=== PATIENT | male | born 1955 | race Two or more races ===

== ENCOUNTER 2022-07-13 07:52 | Inpatient (IN) | payer MEDICARE ==
[~2022-07-13] VITALS: Ht 175.3 cm; Wt 69.0 kg
[2022-07-13 08:26] LABS: Basophils # (auto) 0 10 ^3/uL (0-0.2); Basophils % (auto) 0.2 % (0.0-2.0); Eosinophils # (auto) 0 10 ^3/uL (0-0.8); Hematocrit 44.8 % (41.0-53.0); Hemoglobin 15.1 g/dL (13.5-17.5); Lymphocytes # (auto) 0.6 10 ^3/uL (0.4-5.4); Lymphocytes % (auto) 3.8 % (10.0-50.0); Mean Corpuscular Hemoglobin 30.2 pg (28.0-32.0); Mean Corpuscular Hgb Conc. 33.7 g/dL (32.0-36.0); Mean Corpuscular Volume 89.6 fL (80.0-100.0); Monocytes # (auto) 1.1 10 ^3/uL (0-1.3); Neutrophils # (auto) 14.4 10 ^3/uL (1.6-8.6); Red Cell Distribution Width 13.1 % (11.8-14.3); White Blood Cell 16.1 10^3/uL (4.4-10.8)
[2022-07-13 08:34] LABS: INR 1.04 (0.9-1.15); Partial Thromboplastin Time 30.2 sec (24.6-33.4)
[2022-07-13 09:00] LABS: Albumin 3.2 g/dL (3.4-5.0); BUN/Creatinine Ratio 7.5 (10.0-20.0); Calcium 9.1 mg/dL (8.5-10.1)
[2022-07-13 09:03] LABS: Potassium 3.4 mmol/L (3.5-5.1)
[2022-07-13 09:05] LABS: Bilirubin, Total 1.1 mg/dL (0.2-1.0); Total Protein 7.6 g/dL (6.4-8.2)
[2022-07-13] MEDS ORDERED: ITRACONAZOLE 100 MG CAP PO ONE (10:00)
[2022-07-13] MEDS ORDERED: methylPREDNISolone SOD SUCC 125 MG/2 ML VL IV ONE (11:15)
[2022-07-13] MEDS ORDERED: MORPHINE SULFATE INJ 2 MG/ml SYRG IV PRN (11:15)
[2022-07-13] MEDS ORDERED: ONDANSETRON HCL 4 MG/2 ML VIAL IV PRN (11:15)
[2022-07-13] MEDS ORDERED: DOCUSATE SOD 100 MG CAP PO PRN (11:15)
[2022-07-13] MEDS: SODIUM CHLORIDE 0.9% 1,000 ML IV SCH ×2 (12:51→19:35)
[2022-07-13] MEDS ORDERED: ITRACONAZOLE 100 MG CAP PO SCH (14:00)
[2022-07-13] MEDS: methylPREDNISolone SOD SUCC 125 MG/2 ML VL IV SCH (22:55)
[2022-07-14 04:49] VITALS: BP 105/66
[2022-07-14] MEDS: SODIUM CHLORIDE 0.9% 1,000 ML IV SCH ×3 (06:05→22:06)
[2022-07-14] MEDS: methylPREDNISolone SOD SUCC 125 MG/2 ML VL IV SCH ×3 (06:05→22:06)
[2022-07-14 06:37] LABS: Hematocrit 40.5 % (41.0-53.0); Mean Corpuscular Hemoglobin 30.8 pg (28.0-32.0); Mean Corpuscular Hgb Conc. 34.5 g/dL (32.0-36.0); Mean Corpuscular Volume 89.3 fL (80.0-100.0); Red Blood Cells 4.54 10^6/uL (4.5-5.90); Red Cell Distribution Width 12.7 % (11.8-14.3); White Blood Cell 15.7 10^3/uL (4.4-10.8)
[2022-07-14 06:49] LABS: Potassium 3.5 mmol/L (3.5-5.1)
[2022-07-14 06:59] LABS: Albumin 2.4 g/dL (3.4-5.0); BUN/Creatinine Ratio 23.4 (10.0-20.0); Calcium 9.1 mg/dL (8.5-10.1)
[2022-07-14 07:02] LABS: Bilirubin, Total 0.7 mg/dL (0.2-1.0); Total Protein 7.1 g/dL (6.4-8.2)
[2022-07-14 07:25] LABS: Basophils % (manual) 0 (0.0-2.0); Blast Cells 0; Eosinophils % (manual) 0 (0-7); Metamyelocytes % 0; Myelocytes % 0; Promyelocytes % 0; Reactive Lymphocytes 0
[2022-07-14] MEDS: cefTRIAXone 1GM/50ML D5W 50 ML IV SCH (08:48)
[2022-07-14] MEDS: ENOXAPARIN SOD 40 MG/0.4 ML SYRINGE SC SCH (08:49)
[2022-07-14 09:00] VITALS: BP 100/63
[2022-07-14 10:19] LABS: Band Neutrophils % (manual) 6; Lymphocytes % (manual) 5 (10.0-50.0); Monocytes % (manual) 1 (0-12)
[2022-07-14] MEDS: AZITHROMYCIN 500MG/ 250ML 250 ML IV SCH (11:09)
[2022-07-14 12:38] VITALS: BP 100/67
[2022-07-14 17:00] VITALS: BP 120/63
[2022-07-14 22:00] VITALS: BP 103/63
[2022-07-15] MEDS: SODIUM CHLORIDE 0.9% 1,000 ML IV SCH ×3 (04:55→22:52)
[2022-07-15 05:00] VITALS: BP 105/56
[2022-07-15] MEDS: methylPREDNISolone SOD SUCC 125 MG/2 ML VL IV SCH ×3 (06:22→22:52)
[2022-07-15] MEDS: cefTRIAXone 1GM/50ML D5W 50 ML IV SCH (08:11)
[2022-07-15 08:12] VITALS: BP 105/66
[2022-07-15] MEDS: AZITHROMYCIN 500MG/ 250ML 250 ML IV SCH (09:12)
[2022-07-15] MEDS: ENOXAPARIN SOD 40 MG/0.4 ML SYRINGE SC SCH (09:12)
[2022-07-15 11:54] VITALS: BP 101/63
[2022-07-15 16:33] VITALS: BP 111/64
[2022-07-15 22:00] VITALS: BP 112/68
[2022-07-16 05:00] VITALS: BP 116/73
[2022-07-16] MEDS: methylPREDNISolone SOD SUCC 125 MG/2 ML VL IV SCH ×3 (05:41→21:05)
[2022-07-16] MEDS: SODIUM CHLORIDE 0.9% 1,000 ML IV SCH ×3 (05:41→21:05)
[2022-07-16 08:00] VITALS: BP 110/63
[2022-07-16] MEDS: cefTRIAXone 1GM/50ML D5W 50 ML IV SCH (08:19)
[2022-07-16 09:00] VITALS: BP 110/63
[2022-07-16] MEDS: ENOXAPARIN SOD 40 MG/0.4 ML SYRINGE SC SCH (11:49)
[2022-07-16] MEDS: AZITHROMYCIN 500MG/ 250ML 250 ML IV SCH (11:49)
[2022-07-16 13:00] VITALS: BP 102/58
[2022-07-16 18:12] VITALS: BP 124/66
[2022-07-16 22:00] VITALS: BP 119/72
[2022-07-17] MEDS: SODIUM CHLORIDE 0.9% 1,000 ML IV SCH (01:51)
[2022-07-17 05:00] VITALS: BP 125/71
[2022-07-17] MEDS: methylPREDNISolone SOD SUCC 125 MG/2 ML VL IV SCH ×2 (05:05→14:16)
[2022-07-17 09:06] VITALS: BP 113/61
[2022-07-17] MEDS: cefTRIAXone 1GM/50ML D5W 50 ML IV SCH (10:27)
[2022-07-17] MEDS: AZITHROMYCIN 500MG/ 250ML 250 ML IV SCH (10:27)
[2022-07-17] MEDS: ENOXAPARIN SOD 40 MG/0.4 ML SYRINGE SC SCH (10:27)
[2022-07-17] MEDS ORDERED: LEVO750T8 PO (11:08)
[2022-07-17 13:00] VITALS: BP 119/68
== END 2022-07-17 15:14 | disposition home or self-care (01) | DRG 193 ==
LOC: ER 07:52 → OVERFLOW 11:24 → WEST WING 18:32
PROVIDERS: ADMIT Nurse Practitioner Family; ATTEND Internal Medicine Pulmonary Disease
DX: J18.9 Pneumonia, unspecified organism (principal); J96.00 Acute respiratory failure, unspecified whether with hypoxia or hypercapnia; E44.1 Mild protein-calorie malnutrition; J47.0 Bronchiectasis with acute lower respiratory infection; J47.1 Bronchiectasis with (acute) exacerbation; J98.11 Atelectasis; E87.1 Hypo-osmolality and hyponatremia; Z20.822 Contact with and (suspected) exposure to COVID-19; E87.6 Hypokalemia; J84.10 Pulmonary fibrosis, unspecified; Z82.49 Family history of ischemic heart disease and other diseases of the circulatory system; Z68.22 Body mass index [BMI] 22.0-22.9, adult
CPT/HCPCS: 36415; 71045; 71250; 80053; 82785; 84484; 85007; 85025; 85027; 85610; 85730; 86606; 86703; 87070; 87205; 87426; 93005; 96374; G0378; J0696

== ENCOUNTER 2023-04-09 09:13 | Emergency (ER) | payer MEDICARE ==
[~2023-04-09] VITALS: Ht 180.3 cm; Wt 50.2 kg
[~2023-04-09 09:13] MED LIST: LEVO750T8 PO
[2023-04-09 09:35] LABS: Basophils # (auto) 0 10 ^3/uL (0-0.2); Basophils % (auto) 0.3 % (0.0-2.0); Eosinophils # (auto) 0.1 10 ^3/uL (0-0.8); Eosinophils % (auto) 1.4 % (0.0-7.0); Hematocrit 41.2 % (41.0-53.0); Hemoglobin 13.5 g/dL (13.5-17.5); Lymphocytes # (auto) 0.6 10 ^3/uL (0.4-5.4); Lymphocytes % (auto) 6.8 % (10.0-50.0); Mean Corpuscular Hemoglobin 29.7 pg (28.0-32.0); Mean Corpuscular Hgb Conc. 32.8 g/dL (32.0-36.0); Mean Corpuscular Volume 90.6 fL (80.0-100.0); Monocytes # (auto) 0.6 10 ^3/uL (0-1.3); Monocytes % (auto) 7.6 % (0.0-12.0); Neutrophils # (auto) 7.1 10 ^3/uL (1.6-8.6); Neutrophils % (auto) 83.9 % (37.0-80.0); Red Blood Cells 4.54 10^6/uL (4.5-5.90); Red Cell Distribution Width 14.8 % (11.8-14.3); White Blood Cell 8.4 10^3/uL (4.4-10.8)
[2023-04-09] MEDS ORDERED: ASPirin 81 mg TAB PO ONE (09:45)
[2023-04-09 09:57] LABS: Albumin 4.4 g/dL (3.2-4.8); Alkaline Phosphatase 91 U/L (46-116); Anion Gap 8 (5-15); Aspartate Aminotransferase 12 U/L (13-40); BUN/Creatinine Ratio 12.6 (10.0-20.0); Bilirubin, Total 0.5 mg/dL (0.2-1.0); Blood Urea Nitrogen 12 mg/dL (9-23); Calcium 9.7 mg/dL (8.5-10.1); Carbon Dioxide 29 mmol/L (20-30); Chloride 103 mmol/L (98-107); Glucose 111 mg/dL (74-106); Potassium 4.1 mmol/L (3.5-5.1); Sodium 140 mmol/L (136-145); Total Protein 7.5 g/dL (5.7-8.2)
[2023-04-09 10:01] LABS: Alanine Aminotransferase 9 U/L (7-40)
[2023-04-09 13:58] LABS: Urine Bacteria NONE SEEN /hpf (None Seen); Urine Blood Negative /uL (Negative); Urine Clarity Clear (Clear); Urine Color Yellow (Yellow); Urine Mucus FEW (None Seen); Urine Protein, UAD TRACE (Negative); Urine Specific Gravity 1.024 (1.001-1.035); Urine Urobilinogen Normal (Negative); Urine WBC 1 /hpf (0 - 3)
[2023-04-09 14:16] VITALS: BP 125/71; PULSE 83; RESP 18; TEMP 98.5; O2SAT 99
== END 2023-04-09 14:19 | disposition home or self-care (01) ==
LOC: ER 09:13
DX: R07.89 Other chest pain (principal); Z79.2 Long term (current) use of antibiotics
CPT/HCPCS: 36415; 71045; 80053; 81001; 84484; 85025; 93005

== ENCOUNTER 2023-04-23 09:28 | Emergency (ER) | payer MEDICARE ==
[~2023-04-23] VITALS: Ht 180.3 cm; Wt 48.8 kg
[2023-04-23 10:50] LABS: Basophils # (auto) 0 10 ^3/uL (0-0.2); Basophils % (auto) 0.7 % (0.0-2.0); Eosinophils # (auto) 0.1 10 ^3/uL (0-0.8); Eosinophils % (auto) 2.1 % (0.0-7.0); Hematocrit 36.6 % (41.0-53.0); Hemoglobin 12.2 g/dL (13.5-17.5); Lymphocytes # (auto) 0.4 10 ^3/uL (0.4-5.4); Lymphocytes % (auto) 6.6 % (10.0-50.0); Mean Corpuscular Hemoglobin 29.7 pg (28.0-32.0); Mean Corpuscular Hgb Conc. 33.2 g/dL (32.0-36.0); Mean Corpuscular Volume 89.4 fL (80.0-100.0); Monocytes # (auto) 0.5 10 ^3/uL (0-1.3); Monocytes % (auto) 8.6 % (0.0-12.0); Neutrophils # (auto) 4.8 10 ^3/uL (1.6-8.6); Nucleated Red Blood Cells % 0.1 %; Red Cell Distribution Width 14.7 % (11.8-14.3); White Blood Cell 5.9 10^3/uL (4.4-10.8)
[2023-04-23 11:12] LABS: Alanine Aminotransferase 11 U/L (7-40); Alkaline Phosphatase 72 U/L (46-116); Anion Gap 5 (5-15); Aspartate Aminotransferase 14 U/L (13-40); Blood Urea Nitrogen 8 mg/dL (9-23); Calcium 9.2 mg/dL (8.5-10.1); Carbon Dioxide 27 mmol/L (20-30); Chloride 108 mmol/L (98-107); Glucose 113 mg/dL (74-106); Potassium 4.2 mmol/L (3.5-5.1); Sodium 140 mmol/L (136-145)
[2023-04-23 11:13] LABS: Bilirubin, Total 0.3 mg/dL (0.2-1.0); Total Protein 7.1 g/dL (5.7-8.2)
[2023-04-23] MEDS ORDERED: LEVO500T91 PO (13:00)
[2023-04-23 13:09] VITALS: BP 100/73; PULSE 97; RESP 18; O2SAT 99
== END 2023-04-23 13:20 | disposition home or self-care (01) ==
LOC: ER 09:28
DX: J40 Bronchitis, not specified as acute or chronic (principal)
CPT/HCPCS: 36415; 71045; 80053; 84484; 85025

== ENCOUNTER 2023-05-18 17:28 | Inpatient (IN) | payer MEDICARE ==
[~2023-05-18] VITALS: Ht 180.3 cm; Wt 89.9 kg
[~2023-05-18 17:28] MED LIST changes: +LEVO500T91 PO
[2023-05-18 18:05] VITALS: PULSE 90; RESP 21; O2SAT 98
[2023-05-18 19:40] VITALS: PULSE 92; RESP 20; O2SAT 96
[2023-05-18] MEDS: IPRATROPIUM BROM 0.5 MG/2.5ML INH SOL HHN ONE (20:34)
[2023-05-18] MEDS: ALBUTEROL SULF 2.5 MG/0.5ML(0.5%) NEB SOLN HHN ONE (20:34)
[2023-05-18] MEDS: DexAMETHasone SOD PHOS 10MG/1ML VIAL INJ IV ONE (20:53)
[2023-05-18] MEDS: SODIUM CHLORIDE 0.9% 1,000 ML IV ONE (20:54)
[2023-05-18] MEDS: cefTRIAXone 1GM/50ML D5W 50 ML IV ONE (21:23)
[2023-05-18 21:24] LABS: Basophils # (auto) 0 10 ^3/uL (0-0.2); Basophils % (auto) 0.4 % (0.0-2.0); Eosinophils # (auto) 0.2 10 ^3/uL (0-0.8); Eosinophils % (auto) 2.5 % (0.0-7.0); Hematocrit 35.6 % (41.0-53.0); Hemoglobin 11.7 g/dL (13.5-17.5); Lymphocytes # (auto) 1.1 10 ^3/uL (0.4-5.4); Lymphocytes % (auto) 16.3 % (10.0-50.0); Mean Corpuscular Hemoglobin 28.8 pg (28.0-32.0); Mean Corpuscular Volume 87.4 fL (80.0-100.0); Monocytes # (auto) 0.6 10 ^3/uL (0-1.3); Monocytes % (auto) 9.4 % (0.0-12.0); Neutrophils # (auto) 4.8 10 ^3/uL (1.6-8.6); Neutrophils % (auto) 71.4 % (37.0-80.0); Nucleated Red Blood Cells % 0.1 %; Red Blood Cells 4.07 10^6/uL (4.5-5.90); Red Cell Distribution Width 13.7 % (11.8-14.3); White Blood Cell 6.7 10^3/uL (4.4-10.8)
[2023-05-18 21:39] LABS: Alkaline Phosphatase 67 U/L (46-116); Anion Gap 9 (5-15); Aspartate Aminotransferase 9 U/L (13-40); BUN/Creatinine Ratio 12.8 (10.0-20.0); Blood Urea Nitrogen 11 mg/dL (9-23); Calcium 8.8 mg/dL (8.7-10.4); Carbon Dioxide 24 mmol/L (20-30); Chloride 107 mmol/L (98-107); Glucose 97 mg/dL (74-106); Magnesium 2.1 mg/dL (1.6-2.6); Potassium 3.7 mmol/L (3.5-5.1); Sodium 140 mmol/L (136-145)
[2023-05-18 21:40] LABS: Alanine Aminotransferase < 9 U/L (7-40); Bilirubin, Total 0.5 mg/dL (0.2-1.0); INR 1.01 (0.9-1.15); Partial Thromboplastin Time 32.5 SEC (24.5-34.5); Prothrombin Time 10.6 sec (9.3-11.8); Total Protein 7.2 g/dL (5.7-8.2)
[2023-05-18] MEDS: AZITHROMYCIN 500MG/ 250ML 250 ML IV ONE (21:54)
[2023-05-18] MEDS ORDERED: NITROGLYCERIN 0.4 MG SL TAB SL PRN (22:00)
[2023-05-18] MEDS ORDERED: ONDANSETRON HCL 4 MG/2 ML VIAL IV PRN (22:00)
[2023-05-18] MEDS ORDERED: HYDROcodone-ACET 5/325MG TAB PO PRN (22:00)
[2023-05-18] MEDS ORDERED: ACETAMINOPHEN 325 MG TAB PO PRN (22:00)
[2023-05-18] MEDS ORDERED: MORPHINE SULFATE INJ 2 MG/ml SYRG IV PRN ×2 (22:00)
[2023-05-18] MEDS ORDERED: TEMAZEPAM 15 MG CAP PO PRN (22:00)
[2023-05-18] MEDS: ASCORBIC ACID 500 MG TAB PO SCH (22:18)
[2023-05-19] VITALS (9 sets, daily range): BP systolic 96–121; BP diastolic 54–74; PULSE 70–98; RESP 16–22; TEMP 97.7–98.4; O2SAT 95–99
[2023-05-19] MEDS: PIPERACILLIN-TAZOB 3.375GM 100 ML IV SCH (00:08)
[2023-05-19] MEDS ORDERED: CARB25TA79 PO (00:16)
[2023-05-19] MEDS ORDERED: MEGE20TA4 PO (00:16)
[2023-05-19 00:19] LABS: COVID19 ANTIGEN SOFIA FIA NEGATIVE (NEGATIVE)
[2023-05-19 01:49] LABS: Urine WBC None Seen /hpf (0 - 3)
[2023-05-19 01:54] LABS: Urine Bacteria NONE SEEN /hpf (None Seen); Urine Blood Negative /uL (Negative); Urine Clarity Clear (Clear); Urine Color Straw (Yellow); Urine Protein, UAD Negative (Negative); Urine Specific Gravity 1.014 (1.001-1.035); Urine Urobilinogen Normal (Negative); Urine pH 5.5 (5.0-8.0)
[2023-05-19 05:27] LABS: Basophils # (auto) 0 10 ^3/uL (0-0.2); Basophils % (auto) 0.1 % (0.0-2.0); Eosinophils # (auto) 0 10 ^3/uL (0-0.8); Eosinophils % (auto) 0.1 % (0.0-7.0); Hematocrit 31.9 % (41.0-53.0); Hemoglobin 10.6 g/dL (13.5-17.5); Lymphocytes # (auto) 0.2 10 ^3/uL (0.4-5.4); Mean Corpuscular Hemoglobin 28.8 pg (28.0-32.0); Mean Corpuscular Hgb Conc. 33.1 g/dL (32.0-36.0); Mean Corpuscular Volume 86.9 fL (80.0-100.0); Monocytes # (auto) 0.1 10 ^3/uL (0-1.3); Monocytes % (auto) 1.2 % (0.0-12.0); Neutrophils # (auto) 4.2 10 ^3/uL (1.6-8.6); Neutrophils % (auto) 93.6 % (37.0-80.0); Red Blood Cells 3.67 10^6/uL (4.5-5.90); Red Cell Distribution Width 13.5 % (11.8-14.3); White Blood Cell 4.4 10^3/uL (4.4-10.8)
[2023-05-19 05:38] LABS: Albumin 3.5 g/dL (3.2-4.8); Alkaline Phosphatase 58 U/L (46-116); Anion Gap 7 (5-15); Aspartate Aminotransferase < 8 U/L (13-40); BUN/Creatinine Ratio 10.7 (10.0-20.0); Blood Urea Nitrogen 8 mg/dL (9-23); Calcium 8.7 mg/dL (8.7-10.4); Carbon Dioxide 23 mmol/L (20-30); Chloride 110 mmol/L (98-107); Glucose 141 mg/dL (74-106); Potassium 4.1 mmol/L (3.5-5.1); Sodium 140 mmol/L (136-145)
[2023-05-19 05:39] LABS: Bilirubin, Total 0.5 mg/dL (0.2-1.0); Total Protein 6.4 g/dL (5.7-8.2)
[2023-05-19 06:22] LABS: Alanine Aminotransferase < 9 U/L (7-40)
[2023-05-19] MEDS ORDERED: ALBUTEROL SULF 2.5 MG/0.5ML(0.5%) NEB SOLN NEB PRN (11:15)
[2023-05-19] MEDS: ENOXAPARIN SOD 30 MG/0.3 ML SYRINGE SC SCH (11:15)
[2023-05-19] MEDS: MULTIPLE VITAMIN TAB PO SCH (11:39)
[2023-05-19] MEDS: ZINC SULFATE 220mg CAP or TAB PO SCH (11:39)
[2023-05-19] MEDS: CARBIDOPA W LEVODOPA 25/100mg TABLET PO SCH (12:25)
[2023-05-19] MEDS: MEGESTROL ACETATE 20 MG TAB PO SCH (13:08)
[2023-05-20] VITALS (7 sets, daily range): BP systolic 92–108; BP diastolic 53–66; PULSE 74–87; RESP 16–17; TEMP 97.9–98.9; O2SAT 97–99
[2023-05-20] MEDS: PANTOPRAZOLE 40 MG TAB PO SCH (10:15)
== END 2023-05-20 13:36 | disposition home or self-care (01) | DRG 178 ==
LOC: ER 17:28 → TELE 21:49 → TELE-WESTW 05-19 03:30
PROVIDERS: ADMIT Internal Medicine; ATTEND Internal Medicine
DX: J15.69 Pneumonia due to other Gram-negative bacteria (principal); J44.0 Chronic obstructive pulmonary disease with (acute) lower respiratory infection; J93.9 Pneumothorax, unspecified; J47.0 Bronchiectasis with acute lower respiratory infection; J84.10 Pulmonary fibrosis, unspecified; Z20.822 Contact with and (suspected) exposure to COVID-19; G20.A1 Parkinson's disease without dyskinesia, without mention of fluctuations; Z82.49 Family history of ischemic heart disease and other diseases of the circulatory system; Z87.891 Personal history of nicotine dependence; J15.9 Unspecified bacterial pneumonia
CPT/HCPCS: 36415; 71045; 71046; 71250; 80053; 81001; 83605; 83735; 85025; 85610; 85730; 87040; 87426; 94640; 96365; 96375; G0378; J1100; J2543